=== PATIENT | male | born 1975 | race Caucasian/White ===

== ENCOUNTER 2020-12-03 22:11 | Emergency (ER) | payer MEDICAID ==
[~2020-12-03] VITALS: Ht 182.9 cm; Wt 84.1 kg
--- NOTE | 2020-12-03 22:18 | NUR ---
[facility] AWARE OF INCIDENT CASE #[id number]
[2020-12-03] MEDS ORDERED: normal saline 1000ML IV soln IVB ONE (22:20)
[2020-12-03] MEDS ORDERED: ondansetron/PF 4mg/2ml inj IV ONE (22:20)
[2020-12-03] MEDS ORDERED: HYDROmorphone 1 mg/ml syringe IV ONE (22:25)
[2020-12-03] MEDS ORDERED: ceFAZolin/D5W- 1GM premix 50 ML IV SCH (22:25)
[2020-12-03] MEDS ORDERED: TETanus/Pertussis (Acell)/Diphther VAC/PF (Tdap-Adult) 0.5ml syringe IMVAC ONE (22:25)
[2020-12-03] MEDS ORDERED: BUPIVAcaine/PF 2.5 mg/ml (0.25%) 30ml vial IJ ONE (22:25)
[2020-12-03] MEDS ORDERED: ceFAZolin/D5W- 1GM premix 50 ML IV ONE (22:31)
[2020-12-03 22:47] LABS: BASOPHILS # (AUTO) 0.1 X10'3 (0-0.2); BASOPHILS % (AUTO) 0.5 % (0-1); EOSINOPHILS # (AUTO) 0.2 X10'3 (0-0.9); EOSINOPHILS % (AUTO) 2.4 % (0-6); HEMATOCRIT 44.3 % (42.0-52.0); HEMOGLOBIN 14.6 g/dl (14.0-17.9); LYMPHOCYTES # (AUTO) 1.7 X10'3 (1.1-4.8); LYMPHOCYTES % (AUTO) 17.7 % (21-51); MEAN CORPUSCULAR HEMOGLOBIN 28.8 PG (27.0-31.0); MEAN CORPUSCULAR VOLUME 87.1 FL (78-98); MEAN PLATELET VOLUME 8.6 FL (7.4-10.4); MONOCYTES # (AUTO) 0.9 X10'3 (0-0.9); NEUTROPHILS # (AUTO) 6.9 X10'3 (1.8-7.7); NEUTROPHILS % (AUTO) 70.4 % (42-75); PLATELET COUNT 285 X10'3 (140-440); RED BLOOD COUNT 5.09 X10'6 (4.70-6.10); RED CELL DISTRIBUTION WIDTH 14.9 % (11.5-14.5); WHITE BLOOD COUNT 9.8 X10'3 (4.5-11.0)
[2020-12-03 22:55] LABS: ALANINE AMINOTRANSFERASE 33 U/L (12-78); ALBUMIN 3.8 G/DL (3.4-5.0); ALBUMIN/GLOBULIN RATIO 0.9 (1.1-1.5); ALKALINE PHOSPHATASE 87 IU/L (46-116); ANION GAP 11 (8-16); ASPARTATE AMINO TRANSFERASE 18 U/L (10-37); BILIRUBIN,TOTAL 0.4 MG/DL (0.1-1.0); BLOOD UREA NITROGEN 18 MG/DL (7-18); CALCIUM 8.9 MG/DL (8.5-10.1); CHLORIDE 102 MMOL/L (99-107); GLUCOSE 92 MG/DL (70-104); POTASSIUM 3.8 MMOL/L (3.5-5.1); SODIUM 140 MMOL/L (135-145); TOTAL CARBON DIOXIDE 27.3 MMOL/L (24-32); TOTAL PROTEIN 7.9 G/DL (6.4-8.2); eGFR 81 ML/MIN
--- NOTE | 2020-12-03 23:43 | NUR ---
notified dr weber about pt pain 04/19
[2020-12-04] MEDS ORDERED: HYDROmorphone 1 mg/ml syringe IV ONE ×2 (00:40→01:15)
--- NOTE | 2020-12-04 01:45 | NUR ---
[employer] team arrives- report given to perlita gilliam
[2020-12-04 03:06] VITALS: BP 138/63
== END 2020-12-04 02:00 | disposition short-term general hospital (02) ==
LOC: ER 22:12 → EEVIPCON 22:12 → ER 12-04 02:00
DX: S61.233A Puncture wound without foreign body of left middle finger without damage to nail, initial encounter (principal); S61.231A Puncture wound without foreign body of left index finger without damage to nail, initial encounter; S62.603A Fracture of unspecified phalanx of left middle finger, initial encounter for closed fracture; S62.601A Fracture of unspecified phalanx of left index finger, initial encounter for closed fracture; Z20.3 Contact with and (suspected) exposure to rabies; Z98.890 Other specified postprocedural states; X58.XXXA Exposure to other specified factors, initial encounter; Y93.89 Activity, other specified; Y92.89 Other specified places as the place of occurrence of the external cause; Y99.8 Other external cause status
CPT/HCPCS: 36415; 73140; 80053; 85025; 90471; 90715; 96365; 96366; 96375; 96376; 99291; J0690; J1170; J2405; J7030

== ENCOUNTER 2021-11-30 08:01 | Emergency (ER) | payer MEDICAID ==
[~2021-11-30] VITALS: Ht 195.6 cm; Wt 75.0 kg
[2021-11-30 08:20] VITALS: BP 126/92
[2021-11-30] MEDS ORDERED: TETanus/Pertussis (Acell)/Diphther VAC/PF (Tdap-Adult) 0.5ml syringe IMVAC ONE (08:30)
== END 2021-11-30 09:01 ==
LOC: ER 08:01
DX: Z04.1 Encounter for examination and observation following transport accident (principal); S09.90XA Unspecified injury of head, initial encounter; F17.200 Nicotine dependence, unspecified, uncomplicated; Z20.3 Contact with and (suspected) exposure to rabies; Z59.00 Homelessness unspecified; Z98.890 Other specified postprocedural states; V89.2XXA Person injured in unspecified motor-vehicle accident, traffic, initial encounter; Y93.89 Activity, other specified; Y92.89 Other specified places as the place of occurrence of the external cause; Y99.8 Other external cause status
CPT/HCPCS: 90471; 90715; 99283